=== PATIENT | female | born 1990 | race Caucasian/White ===

== ENCOUNTER 2017-11-07 06:45 | Inpatient (IN) | payer BC, OTHER ==
[2017-11-07] MEDS ORDERED: Ondansetron 4 MG/2 ML SDV IVPUSH PRN ×2 (07:08→07:36)
[2017-11-07] MEDS ORDERED: Nalbuphine 20 MG/ML 1 ML Syringe IVPUSH PRN (07:08)
[2017-11-07] MEDS ORDERED: Sodium Chloride 0.9% 10 ML Syringe FLUSH PRN (07:08)
[2017-11-07] MEDS ORDERED: Oxytocin/Lactated Ringers 10 UNIT/1,000 ML BAG IV SCH (07:15)
--- NOTE | 2017-11-07 07:15 | PCM.LDHP ---
L&D History of Present Illness - General Date of Service: 11/07/17 Admit Problem/Dx: Patient Status Order with Admit Dx/Problem 11/07/17 07:08 Patient Status [ADT] Routine Admission Diagnosis/Problem Admission Diagnosis/Problem Normal labor Source of Information: Patient History Limitations: Reports: No Limitations - History of Present Illness Introduction:: Patient is a 26 y/o at 38 5/7 wks who presents in labor. Contractions started early this AM. Have progressively gotten stronger. No bleeding or LOF. No other concerns. - Related Data Allergies/Adverse Reactions: Allergies Allergy/AdvReac Type Severity Reaction Status Date / Time Penicillins Allergy Hives Verified 06/28/15 13:08 Home Medications: Home Meds Pnv95/Iron Fum/Folic Acid [ Caplet] 06/28/15 [History] Ranitidine HCl [Zantac] 06/28/15 [History] Benzocaine/Menthol [Dermoplast Pain Relief [place]] 1 sprays TOP ASDIRECTED PRN # 0 canister 07/01/15 [Rx] Docusate Sodium [Colace] 100 mg PO BID PRN #0 cap 07/01/15 [Rx] Ibuprofen [IJD: Ibuprofen] 600 mg PO Q4H PRN #0 tablet 07/01/15 [Rx] Witch Valerie [Tucks] 1 pad TOP ASDIRECTED PRN #0 pad 07/01/15 [Rx] Past Medical History - Past Health History Medical/Surgical History: Denies 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 Para: 1 LMP (Approximate): - Infectious Disease History Infectious Disease History: Reports: Chicken Pox Social & Family History - Tobacco Use Smoking Status *Q: Never Smoker - Alcohol Use Alcohol Use History: No - Recreational Drug Use Recreational Drug Use: No Drug Use in Last 12 Months: No H&P Review of Systems - Review of Systems: Review Of Systems: See Below General: Reports: No Symptoms Pulmonary: Reports: No Symptoms Cardiovascular: Reports: No Symptoms Gastrointestinal: Reports: No Symptoms Genitourinary: Reports: No Symptoms Musculoskeletal: Reports: No Symptoms L&D Exam - Exam Exam: See Below - OB Specific Contraction Intensity: Moderate Movement: Active Heart Tones: Present Heart Tones per Min: 135 Heart Rate (FHR) Variability: Moderate (6-25 bmp) Presentation: Vertex - Bobby Score Bobby Score Cervix Position: Midposition Bobby Score Consistency: Soft Bobby Score Effacement: >80% Bobby Score Dilation: > 5 cm Bobby Score 's Station: -1 ,0 Bobby Score Total: 11 - Exam General: Alert, Oriented, Cooperative Lungs: Clear to Auscultation, Normal Respiratory Effort Cardiovascular: Regular Rate, Regular Rhythm GI/Abdominal Exam: Soft, Non-Tender Genitourinary: Normal external exam Extremities: Normal Inspection Skin: Warm, Dry, Intact - Problem List (1) 38 weeks gestation of SNOMED Code(s): 58548447 ICD Code: Z3A.38 - 38 WEEKS GESTATION OF Status: Acute Current Visit: Yes Problem List Initiated/Reviewed/Updated: Yes Orders Last 24hrs: Active Orders 24 hr Category Date Time Status Patient Status [ADT] Routine ADT 11/07/17 07:08 Ordered Activity as Tolerated [RC] PFP Care 11/07/17 07:08 Ordered Communication Order [RC] ASDIRECTED Care 11/07/17 07:08 Ordered Heart Tones [RC] ASDIRECTED Care 11/07/17 07:09 Ordered Non Stress Test [RC] PER UNIT ROUTINE Care 11/07/17 07:08 Ordered Notify Provider [RC] PFP Care 11/07/17 07:08 Ordered Notify Provider [RC] PRN Care 11/07/17 07:08 Ordered Peripheral IV Care [RC] . DIRECTED Care 11/07/17 07:09 Ordered Vital Signs [RC] PER UNIT ROUTINE Care 11/07/17 07:08 Ordered Regular Diet [DIET] Diet 11/07/17 Breakfast Ordered CBC W/O DIFF,HEMOGRAM [HEME] Stat Lab 11/07/17 07:08 Ordered RAPID PLASMA REAGIN,RPR [CHEM] Routine Lab 11/07/17 07:08 Ordered TYPE AND SCREEN [BBK] Stat Lab 11/07/17 07:08 Ordered Lactated Ringers [Ringers, Lactated] 1,000 ml Med 11/07/17 07:15 Ordered IV ASDIRECTED Nalbuphine [Nubain] Med 11/07/17 07:08 Ordered 10 mg IVPUSH Q2H PRN Ondansetron [Zofran] Med 11/07/17 07:08 Ordered 4 mg IVPUSH Q4H PRN Oxytocin/Lactated Ringers [Pitocin in LR 10 Units/1,000 Med 11/07/17 07:15 Ordered ML] 10 unit in 1,000 ml IV .CONTINUOUS Sodium Chloride 0.9% [Saline Flush] Med 11/07/17 07:08 Ordered 10 ml FLUSH ASDIRECTED PRN Electronic Heart Tones Ext w TOCO [WOMSER] Ot 11/07/17 07:08 Ordered Routine Electronic Heart Tones Internal [WOMSER] Per Unit Ot 11/07/17 07:08 Ordered Routine Peripheral IV Insertion Adult [OM.PC] Routine Oth 11/07/17 07:08 Ordered Resuscitation Status Routine Resus Stat 11/07/17 07:08 Ordered Medication Orders Lactated Ringer's (Ringers, Lactated) 1,000 mls @ 100 mls/hr IV ASDIRECTED [facility] Oxytocin/Lactated Ringer's (Pitocin In Lr 10 Units/1,000 Ml) 10 unit in 1,000 mls @ 500 mls/hr IV .CONTINUOUS [facility] Nalbuphine HCl (Nubain) 10 mg IVPUSH Q2H PRN PRN Reason: pain Ondansetron HCl (Zofran) 4 mg IVPUSH Q4H PRN PRN Reason: Nausea/Vomiting Sodium Chloride (Saline Flush) 10 ml FLUSH ASDIRECTED PRN PRN Reason: Keep Vein Open Assessment/Plan Comment:: 26 y/o at 38 5/7 wks presents in labor * Labs on admission * GBS negative, no need for antibiotics * Pain management per patient preference * Anticipate
[2017-11-07] MEDS ORDERED: ePHEDrine 50 MG/ML SDV IVPUSH PRN (07:36)
[2017-11-07] MEDS ORDERED: diphenhydrAMINE 50 MG/ML SDV IVPUSH PRN (07:36)
[2017-11-07] MEDS ORDERED: fentaNYL 100 MCG/2 ML SDV EPIDUR PRN (07:36)
[2017-11-07] MEDS ORDERED: Bupivacaine/fentaNYL/NS 100 ML Bag EPIDUR SCH (07:45)
[2017-11-07] MEDS: Lactated Ringers 1,000 ML IV SCH ×2 (07:57→08:24)
--- NOTE | 2017-11-07 08:33 | PCM.PREANE ---
Preanesthetic Assessment - Anesthesia/Transfusion/Family Hx Anesthesia History: Prior Anesthesia Without Reaction Family History of Anesthesia Reaction: No Transfusion History: No Prior Transfusion(s) - Review of Systems General: No Symptoms Pulmonary: No Symptoms Cardiovascular: No Symptoms Gastrointestinal: No Symptoms Neurological: No Symptoms Other: Reports: None - Physical Assessment Pulse: 88 O2 Sat by Pulse Oximetry: 98 Respiratory Rate: 22 Blood Pressure: 118/77 Temperature: 98.2 C - Lab Values: Laboratory Last Values WBC 12.99 K/mm3 (3.98-10.04) H 11/07/17 07:20 RBC 4.13 M/mm3 (3.98-5.22) 11/07/17 07:20 Hgb 12.2 gm/L (11.2-15.7) 11/07/17 07:20 Hct 36.2 % (34.1-44.9) 11/07/17 07:20 MCV 87.7 fl (79.4-94.8) 11/07/17 07:20 MCH 29.5 pg (25.6-32.2) 11/07/17 07:20 MCHC 33.7 g/dl (32.2-35.5) 11/07/17 07:20 RDW Std Deviation 40.2 fL (36.4-46.3) 11/07/17 07:20 Plt Count 216 K/mm3 (182-369) 11/07/17 07:20 MPV 9.9 fl (9.4-12.3) 11/07/17 07:20 Blood Type O POSITIVE 11/07/17 07:20 Gel Antibody Screen Negative 11/07/17 07:20 - Allergies Allergies/Adverse Reactions: Allergies Allergy/AdvReac Type Severity Reaction Status Date / Time Penicillins Allergy Hives Verified 06/28/15 13:08 PreAnesthesia Questionnaire - Past Health History Medical/Surgical History: Denies 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: - Infectious Disease History Infectious Disease History: Reports: Chicken Pox - SUBSTANCE USE Smoking Status *Q: Never Smoker Recreational Drug Use History: No - HOME MEDS Home Medications: Home Meds Pnv95/Iron Fum/Folic Acid [ Caplet] 06/28/15 [History] Ranitidine HCl [Zantac] 06/28/15 [History] Benzocaine/Menthol [Dermoplast Pain Relief [place]] 1 sprays TOP ASDIRECTED PRN # 0 canister 07/01/15 [Rx] Docusate Sodium [Colace] 100 mg PO BID PRN #0 cap 07/01/15 [Rx] Ibuprofen [IJD: Ibuprofen] 600 mg PO Q4H PRN #0 tablet 07/01/15 [Rx] Elan Blandonel [Tucks] 1 pad TOP ASDIRECTED PRN #0 pad 07/01/15 [Rx] - CURRENT (IN HOUSE) MEDS Current Meds: Current Medications Diphenhydramine HCl (Benadryl) 25 mg IVPUSH Q6H PRN PRN Reason: Pruritis Ephedrine Sulfate (Ephedrine Sulfate) 5 mg IVPUSH ASDIRECTED PRN PRN Reason: Hypotension Fentanyl (Sublimaze) 100 mcg EPIDUR ONETIME PRN PRN Reason: Pain Last Admin: 11/07/17 08:14 Dose: 100 mcg Fentanyl/Bupivacaine HCl (Fentanyl/Bupivacaine/Ns 2 Mcg-0.125% 100 Ml) 100 ml EPIDUR ASDIRECTED [facility] Last Admin: 11/07/17 08:15 Dose: 100 ml Lactated Ringer's (Ringers, Lactated) 1,000 mls @ 100 mls/hr IV ASDIRECTED [facility] Last Admin: 11/07/17 08:24 Dose: 250 mls/hr Oxytocin/Lactated Ringer's (Pitocin In Lr 10 Units/1,000 Ml) 10 unit in 1,000 mls @ 500 mls/hr IV .CONTINUOUS [facility] Nalbuphine HCl (Nubain) 10 mg IVPUSH Q2H PRN PRN Reason: pain Ondansetron HCl (Zofran) 4 mg IVPUSH Q4H PRN PRN Reason: Nausea/Vomiting Ondansetron HCl (Zofran) 4 mg IVPUSH ONETIME PRN PRN Reason: Nausea/Vomiting Sodium Chloride (Saline Flush) 10 ml FLUSH ASDIRECTED PRN PRN Reason: Keep Vein Open
--- NOTE | 2017-11-07 12:25 | PCM.DEL ---
L & D Note - General Info Date of Service: 11/07/17 - Delivery Note Labor: Spontaneous Delivery Outcome: Livebirth Delivery Method: Spontaneous Vaginal Delivery-Single Delivery Mode: Spontaneous Presentation: Left Occiput Anterior (SYED) Nuchal Cord: None Anesthesia Type: Epidural Amniotic Fluid Description: Clear Episiotomy Type: None Laceration: None Placenta: Intact, Spontaneous Cord: 3 Vessels Estimated Blood Loss: 250 Resuscitation Needed: Yes [place]: Bulb Syringe, Stimulated, Warmed, [place] Used Delivery Comments (Free Text/Narrative):: Patient found to be complete and began pushing. With maternal pushing effort head delivered from an SYED presentation. No nuchal cord present. With gentle downward traction shoulders and body delivered. Infant placed on maternal abdomen. Cord clamped and cut. Cord blood obtained. Placenta allowed time to separate and expelled intact. Inspection of the perineum showed no lacerations - General Info Date of Service: 11/07/17 - Patient Data Vitals - Most Recent: Last Vital Signs Temp 98.2 C H 11/07/17 08:33 Pulse 88 11/07/17 08:33 Resp 22 H 11/07/17 08:33 BP 118/77 11/07/17 08:33 Pulse Ox 98 11/07/17 08:33 Weight - Most Recent: 89.811 kg Lab Results Last 24 Hours: Laboratory Results - last 24 hr 11/07/17 11/07/17 Range/Units 07:20 07:20 WBC 12.99 H (3.98-10.04) K/mm3 RBC 4.13 (3.98-5.22) M/mm3 Hgb 12.2 (11.2-15.7) gm/L Hct 36.2 (34.1-44.9) % MCV 87.7 (79.4-94.8) fl MCH 29.5 (25.6-32.2) pg MCHC 33.7 (32.2-35.5) g/dl RDW Std Deviation 40.2 (36.4-46.3) fL Plt Count 216 (182-369) K/mm3 MPV 9.9 (9.4-12.3) fl Blood Type O POSITIVE Gel Antibody Screen Negative Med Orders - Current: Current Medications Diphenhydramine HCl (Benadryl) 25 mg IVPUSH Q6H PRN PRN Reason: Pruritis Ephedrine Sulfate (Ephedrine Sulfate) 5 mg IVPUSH ASDIRECTED PRN PRN Reason: Hypotension Fentanyl (Sublimaze) 100 mcg EPIDUR ONETIME PRN PRN Reason: Pain Last Admin: 11/07/17 08:14 Dose: 100 mcg Fentanyl/Bupivacaine HCl (Fentanyl/Bupivacaine/Ns 2 Mcg-0.125% 100 Ml) 100 ml EPIDUR ASDIRECTED [facility] Last Admin: 11/07/17 08:15 Dose: 100 ml Lactated Ringer's (Ringers, Lactated) 1,000 mls @ 100 mls/hr IV ASDIRECTED [facility] Last Admin: 11/07/17 08:24 Dose: 250 mls/hr Oxytocin/Lactated Ringer's (Pitocin In Lr 10 Units/1,000 Ml) 10 unit in 1,000 mls @ 500 mls/hr IV .CONTINUOUS [facility] Nalbuphine HCl (Nubain) 10 mg IVPUSH Q2H PRN PRN Reason: pain Ondansetron HCl (Zofran) 4 mg IVPUSH Q4H PRN PRN Reason: Nausea/Vomiting Ondansetron HCl (Zofran) 4 mg IVPUSH ONETIME PRN PRN Reason: Nausea/Vomiting Sodium Chloride (Saline Flush) 10 ml FLUSH ASDIRECTED PRN PRN Reason: Keep Vein Open - Problem List & Annotations (1) 38 weeks gestation of SNOMED Code(s): 06482922 Code(s): Z3A.38 - 38 WEEKS GESTATION OF Status: Acute Current Visit: Yes (2) Vaginal delivery SNOMED Code(s): 079127704 Code(s): O80 - ENCOUNTER FOR FULL-TERM UNCOMPLICATED DELIVERY Status: Acute Current Visit: No - Problem List Review Problem List Initiated/Reviewed/Updated: Yes - My Orders Last 24 Hours: My Active Orders 11/07/17 07:08 Patient Status [ADT] Routine Activity as Tolerated [RC] PFP Communication Order [RC] ASDIRECTED Non Stress Test [RC] PER UNIT ROUTINE Notify Provider [RC] PFP Notify Provider [RC] PRN Vital Signs [RC] PER UNIT ROUTINE Nalbuphine [Nubain] 10 mg IVPUSH Q2H PRN Ondansetron [Zofran] 4 mg IVPUSH Q4H PRN Sodium Chloride 0.9% [Saline Flush] 10 ml FLUSH ASDIRECTED PRN Electronic Heart Tones Ext w TOCO [WOMSER] Routine Electronic Heart Tones Internal [WOMSER] Per Unit Routine Peripheral IV Insertion Adult [OM.PC] Routine Resuscitation Status Routine 11/07/17 07:09 Heart Tones [RC] ASDIRECTED Peripheral IV Care [RC] . DIRECTED 11/07/17 07:15 Lactated Ringers [Ringers, Lactated] 1,000 ml IV ASDIRECTED Oxytocin/Lactated Ringers [Pitocin in LR 10 Units/1,000 ML] 10 unit in 1,000 ml IV .CONTINUOUS 11/07/17 07:20 PATIENT RETYPE [BBK] Stat RAPID PLASMA REAGIN,RPR [CHEM] Routine TYPE AND SCREEN [BBK] Stat 11/07/17 12:20 Patient Status Manage Transfer [TRANSFER] Routine 11/07/17 Breakfast Regular Diet [DIET] - Assessment Assessment:: 26 y/o G2 now P2002 PPD#0 from at 38 5/7 wks - Plan Plan:: * Routine cares * Encourage breast feeding * Discharge home in 1-2 days
[2017-11-07] MEDS ORDERED: Benzocaine/Menthol 20%-0.5% Spray 56 GM Canister TOP PRN (13:20)
[2017-11-07] MEDS ORDERED: Witch Hazel Medicated Pads 100/Jar TOP PRN (13:20)
[2017-11-07] MEDS ORDERED: Docusate Sodium 100 MG Cap PO PRN (13:20)
[2017-11-07] MEDS ORDERED: Lanolin 100% Cream 7 GM Tube TOP PRN (13:20)
[2017-11-07] MEDS ORDERED: Acetaminophen 325 MG Tab PO PRN (13:20)
[2017-11-07] MEDS: Ibuprofen 600 MG Tab PO PRN (16:12)
[2017-11-07] MEDS ORDERED: Bupivacaine 0.25% 10 ML SDV ONE (22:00)
--- NOTE | 2017-11-08 07:01 | PCM.PNPP ---
- General Info Date of Service: 11/08/17 Functional Status: Reports: Pain Controlled, Tolerating Diet, Ambulating, Urinating - Review of Systems General: Reports: No Symptoms Pulmonary: Reports: No Symptoms Cardiovascular: Reports: No Symptoms Gastrointestinal: Reports: No Symptoms Genitourinary: Reports: No Symptoms Musculoskeletal: Reports: No Symptoms - Patient Data Vital Signs - Most Recent: Last Vital Signs Temp 98.2 C H 11/07/17 08:33 Pulse 74 11/07/17 19:55 Resp 16 11/07/17 19:55 BP 135/80 11/07/17 19:55 Pulse Ox 99 11/07/17 19:55 Weight - Most Recent: 89.811 kg I&O - Last 24 Hours: Intake & Output 11/07/17 11/08/17 11/08/17 22:59 06:59 14:59 Intake Total 120 Balance 120 Lab Results - Last 24 Hours: Laboratory Results - last 24 hr 11/07/17 11/07/17 11/07/17 Range/Units 07:20 07:20 07:20 WBC 12.99 H (3.98-10.04) K/mm3 RBC 4.13 (3.98-5.22) M/mm3 Hgb 12.2 (11.2-15.7) gm/L Hct 36.2 (34.1-44.9) % MCV 87.7 (79.4-94.8) fl MCH 29.5 (25.6-32.2) pg MCHC 33.7 (32.2-35.5) g/dl RDW Std Deviation 40.2 (36.4-46.3) fL Plt Count 216 (182-369) K/mm3 MPV 9.9 (9.4-12.3) fl RPR Non-reactive (NONREACTIVE) Blood Type O POSITIVE Gel Antibody Screen Negative Med Orders - Current: Current Medications Acetaminophen (Tylenol) 650 mg PO Q4H PRN PRN Reason: mild pain or fever Benzocaine/Menthol (Dermoplast Pain Relief [place]) 0 gm TOP ASDIRECTED PRN PRN Reason: Perineal Comfort Measure Docusate Sodium (Colace) 100 mg PO BID PRN PRN Reason: Constipation Emollient Ointment (Lansinoh Hpa) 0 gm TOP ASDIRECTED PRN PRN Reason: Sore Nipples Ibuprofen (Motrin) 600 mg PO Q6H PRN PRN Reason: Mild pain or fever Last Admin: 11/07/17 16:12 Dose: 600 mg Witch Valerie (Tucks) 1 pad TOP ASDIRECTED PRN PRN Reason: Hemorrhoid pain Discontinued Medications Diphenhydramine HCl (Benadryl) 25 mg IVPUSH Q6H PRN PRN Reason: Pruritis Ephedrine Sulfate (Ephedrine Sulfate) 5 mg IVPUSH ASDIRECTED PRN PRN Reason: Hypotension Fentanyl (Sublimaze) 100 mcg EPIDUR ONETIME PRN PRN Reason: Pain Last Admin: 11/07/17 08:14 Dose: 100 mcg Fentanyl/Bupivacaine HCl (Fentanyl/Bupivacaine/Ns 2 Mcg-0.125% 100 Ml) 100 ml EPIDUR ASDIRECTED [facility] Last Admin: 11/07/17 08:15 Dose: 100 ml Lactated Ringer's (Ringers, Lactated) 1,000 mls @ 100 mls/hr IV ASDIRECTED [facility] Last Admin: 11/07/17 08:24 Dose: 250 mls/hr Oxytocin/Lactated Ringer's (Pitocin In Lr 10 Units/1,000 Ml) 10 unit in 1,000 mls @ 500 mls/hr IV .CONTINUOUS [facility] Last Admin: 11/07/17 11:10 Dose: 500 mls/hr Nalbuphine HCl (Nubain) 10 mg IVPUSH Q2H PRN PRN Reason: pain Ondansetron HCl (Zofran) 4 mg IVPUSH Q4H PRN PRN Reason: Nausea/Vomiting Ondansetron HCl (Zofran) 4 mg IVPUSH ONETIME PRN PRN Reason: Nausea/Vomiting Sodium Chloride (Saline Flush) 10 ml FLUSH ASDIRECTED PRN PRN Reason: Keep Vein Open - Infant Interaction Disposition, : in Room with Family Interaction: Holding Infant Feeding: Breastfed Infant; Nursed Well Support Person: - Recovery Exam Fundal Tone: Firm Fundal Level: 1 Fingerbreadths Below Umbilicus Fundal Placement: Midline Lochia Amount: Small Lochia Color: Rubra/Red Perineum Description: Intact, Minimal Bruising/Swelling Episiotomy/Laceration: None Bladder Status: Voiding Urinary Elimination: Voided - Exam General: Alert, Oriented, Cooperative GI/Abdominal Exam: Soft, Non-Tender Extremities: Normal Inspection Skin: Warm, Dry, Intact - Problem List & Annotations (1) 38 weeks gestation of SNOMED Code(s): 85739175 Code(s): Z3A.38 - 38 WEEKS GESTATION OF Status: Acute Current Visit: Yes (2) Vaginal delivery SNOMED Code(s): 698716880 Code(s): O80 - ENCOUNTER FOR FULL-TERM UNCOMPLICATED DELIVERY Status: Acute Current Visit: No - Problem List Review Problem List Initiated/Reviewed/Updated: Yes - My Orders Last 24 Hours: My Active Orders 11/07/17 07:08 Resuscitation Status Routine 11/07/17 07:09 Heart Tones [RC] ASDIRECTED Peripheral IV Care [RC] . DIRECTED 11/07/17 13:20 Activity as Tolerated [RC] PER UNIT ROUTINE Vital Signs [RC] 03,09,15,21 Acetaminophen [Tylenol] 650 mg PO Q4H PRN Benzocaine/Menthol [Dermoplast Pain Relief [place]] See Dose Instructions TOP ASDIRECTED PRN Docusate Sodium [Colace] 100 mg PO BID PRN Ibuprofen [Motrin] 600 mg PO Q6H PRN Lanolin [Lansinoh HPA] See Dose Instructions TOP ASDIRECTED PRN Witch Valerie [Tucks] 1 pad TOP ASDIRECTED PRN Assess Lochia [WOMSER] Per Unit Routine Assess Uterine Involution [WOMSER] Per Unit Routine Breast Pump [WOMSER] Per Unit Routine Heat Therapy [OM.PC] PRN Ice Therapy [OM.PC] Per Unit Routine Perineal Care [OM.PC] Per Unit Routine Peripheral IV Discontinue [OM.PC] Routine Sitz Bath [OM.PC] Per Unit Routine 11/07/17 Lunch Regular Diet [DIET] 11/08/17 13:20 Heat Therapy [OM.PC] PRN - Assessment Assessment:: 26 y/o G2 now P2002 PPD#1 from at 38 5/7 wks - Plan Plan:: * Routine cares * Encourage breast feeding * Discharge home today
--- NOTE | 2017-11-08 07:10 | PCM.DCSUM1 ---
Discharge Summary - Discharge Data Discharge Date: 11/08/17 Discharge Disposition: Home, Self-Care 01 Condition: Good - Discharge Diagnosis/Problem(s) (1) 38 weeks gestation of SNOMED Code(s): 57871720 ICD Code: Z3A.38 - 38 WEEKS GESTATION OF Status: Acute Current Visit: Yes (2) Vaginal delivery SNOMED Code(s): 430788928 ICD Code: O80 - ENCOUNTER FOR FULL-TERM UNCOMPLICATED DELIVERY Status: Acute Current Visit: No - Patient Summary/Data Complications: None Consults: None Recommended Follow-up Testing/Procedures: Follow up in 3-6 weeks for check Hospital Course: 26 y/o at 38 5/7 wks presented in labor. She progressed well without need for augmentation. She underwent an uncomplicated . See delivery note. she did well and was discharged home on PPD#1 - Patient Instructions Diet: Regular Diet as Tolerated Activity: As Tolerated Activity, Other: Pelvic Rest for 6 weeks Driving: May Drive Today Showering/Bathing: May Shower Showering/Bathing, Other: May Bathe Notify Provider of: Fever, Increased Pain, Swelling and Redness, Drainage, Nausea and/or Vomiting - Discharge Plan *PRESCRIPTION DRUG MONITORING PROGRAM REVIEWED*: Not Applicable *COPY OF PRESCRIPTION DRUG MONITORING REPORT IN PATIENT [place]: Not Applicable Home Medications: Home Meds Pnv95/Iron Fum/Folic Acid [ [place]] 1 tab PO DAILY 06/28/15 [History] Docusate Sodium [Colace] 100 mg PO BID PRN cap 11/08/17 [Rx] Ibuprofen [Motrin] 600 mg PO Q6H PRN tablet 11/08/17 [Rx] Referrals: Nahed Cao MD [Primary Care Provider] - (3-6 weeks for check ) - Discharge Summary/Plan Comment DC Time >30 min.: No - Patient Data Vitals - Most Recent: Last Vital Signs Temp 36.6 C 11/08/17 04:14 Pulse 68 11/08/17 04:14 Resp 16 11/08/17 04:14 BP 119/75 11/08/17 04:14 Pulse Ox 98 11/08/17 04:14 Weight - Most Recent: 89.811 kg I&O - Last 24 hours: Intake & Output 11/07/17 11/08/17 11/08/17 22:59 06:59 14:59 Intake Total 120 Balance 120 Lab Results - Last 24 hrs: Laboratory Results - last 24 hr 11/07/17 11/07/17 11/07/17 Range/Units 07:20 07:20 07:20 WBC 12.99 H (3.98-10.04) K/mm3 RBC 4.13 (3.98-5.22) M/mm3 Hgb 12.2 (11.2-15.7) gm/L Hct 36.2 (34.1-44.9) % MCV 87.7 (79.4-94.8) fl MCH 29.5 (25.6-32.2) pg MCHC 33.7 (32.2-35.5) g/dl RDW Std Deviation 40.2 (36.4-46.3) fL Plt Count 216 (182-369) K/mm3 MPV 9.9 (9.4-12.3) fl RPR Non-reactive (NONREACTIVE) Blood Type O POSITIVE Gel Antibody Screen Negative Med Orders - Current: Current Medications Acetaminophen (Tylenol) 650 mg PO Q4H PRN PRN Reason: mild pain or fever Benzocaine/Menthol (Dermoplast Pain Relief [place]) 0 gm TOP ASDIRECTED PRN PRN Reason: Perineal Comfort Measure Docusate Sodium (Colace) 100 mg PO BID PRN PRN Reason: Constipation Emollient Ointment (Lansinoh Hpa) 0 gm TOP ASDIRECTED PRN PRN Reason: Sore Nipples Ibuprofen (Motrin) 600 mg PO Q6H PRN PRN Reason: Mild pain or fever Last Admin: 11/07/17 16:12 Dose: 600 mg Witch Valerie (Tucks) 1 pad TOP ASDIRECTED PRN PRN Reason: Hemorrhoid pain Discontinued Medications Diphenhydramine HCl (Benadryl) 25 mg IVPUSH Q6H PRN PRN Reason: Pruritis Ephedrine Sulfate (Ephedrine Sulfate) 5 mg IVPUSH ASDIRECTED PRN PRN Reason: Hypotension Fentanyl (Sublimaze) 100 mcg EPIDUR ONETIME PRN PRN Reason: Pain Last Admin: 11/07/17 08:14 Dose: 100 mcg Fentanyl/Bupivacaine HCl (Fentanyl/Bupivacaine/Ns 2 Mcg-0.125% 100 Ml) 100 ml EPIDUR ASDIRECTED [facility] Last Admin: 11/07/17 08:15 Dose: 100 ml Lactated Ringer's (Ringers, Lactated) 1,000 mls @ 100 mls/hr IV ASDIRECTED [facility] Last Admin: 11/07/17 08:24 Dose: 250 mls/hr Oxytocin/Lactated Ringer's (Pitocin In Lr 10 Units/1,000 Ml) 10 unit in 1,000 mls @ 500 mls/hr IV .CONTINUOUS [facility] Last Admin: 11/07/17 11:10 Dose: 500 mls/hr Nalbuphine HCl (Nubain) 10 mg IVPUSH Q2H PRN PRN Reason: pain Ondansetron HCl (Zofran) 4 mg IVPUSH Q4H PRN PRN Reason: Nausea/Vomiting Ondansetron HCl (Zofran) 4 mg IVPUSH ONETIME PRN PRN Reason: Nausea/Vomiting Sodium Chloride (Saline Flush) 10 ml FLUSH ASDIRECTED PRN PRN Reason: Keep Vein Open
--- NOTE | 2017-11-08 07:55 | PCM48HPAN ---
Post Anesthesia Note - EVALUATION WITHIN 48HRS OF ANESTHETIC Vital Signs in Normal Range: Yes Patient Participated in Evaluation: Yes Respiratory Function Stable: Yes Airway Patent: Yes Cardiovascular Function Stable: Yes Hydration Status Stable: Yes Pain Control Satisfactory: Yes Nausea and Vomiting Control Satisfactory: Yes Mental Status Recovered: Yes
[2017-11-08 09:45] VITALS: BP 130/70
[2017-11-08] MEDS: Ibuprofen 600 MG Tab PO PRN (09:46)
== END 2017-11-08 14:10 | disposition home or self-care (01) | DRG 560 ==
LOC: JD.OBCHECK 06:45 → JD.OB 06:45 → JD.OBCHECK 07:07 → JD.OB 07:08 → OBSVTOIN 11:06 → JD.OB 11:07
PROVIDERS: ADMIT Obstetrics & Gynecology; ATTEND Obstetrics & Gynecology
PROC: 10E0XZZ Delivery of Products of Conception, External Approach (ICD-10-PCS; principal; 2017-11-07)
PROC: 6A550ZT Pheresis of Cord Blood Stem Cells, Single (ICD-10-PCS; 2017-11-07)
PROC: 00HU33Z Insertion of Infusion Device into Spinal Canal, Percutaneous Approach (ICD-10-PCS; 2017-11-07)
PROC: 3E0R3BZ Introduction of Anesthetic Agent into Spinal Canal, Percutaneous Approach (ICD-10-PCS; 2017-11-07)
DX: O80 Encounter for full-term uncomplicated delivery (principal); Z3A.38 38 weeks gestation of pregnancy; Z37.0 Single live birth; Z88.0 Allergy status to penicillin
CPT/HCPCS: 01967; 36415; 51701; 59025; 59409; 85027; 86592; 86850; 86900; 86901; A9270-GY; J2590; J3010; J3490; J7120

== ENCOUNTER 2020-08-17 02:21 | Inpatient (IN) | payer BC, OTHER ==
[2020-08-17] MEDS ORDERED: Sodium Chloride 0.9% 10 ML Syringe FLUSH PRN (02:39)
[2020-08-17] MEDS ORDERED: Lidocaine 1% 50 ML MDV INJECT ONE (02:39)
[2020-08-17] MEDS ORDERED: Calcium Carbonate 500 MG Tab.Chew PO PRN (02:39)
[2020-08-17] MEDS ORDERED: Nalbuphine 10 MG/1 ML Vial IVPUSH PRN (02:39)
[2020-08-17] MEDS ORDERED: Oxytocin/Lactated Ringers 10 UNIT/1,000 ML BAG IV SCH (02:45)
[2020-08-17] MEDS: Lactated Ringers 1,000 ML IV SCH ×2 (03:00→03:56)
[2020-08-17] MEDS ORDERED: fentaNYL 100 MCG/2 ML SDV EPIDUR PRN (03:03)
[2020-08-17] MEDS ORDERED: ePHEDrine 50 MG/ML SDV IVPUSH PRN (03:03)
[2020-08-17] MEDS ORDERED: Bupivacaine/fentaNYL/NS 100 ML Bag EPIDUR PRN (03:03)
[2020-08-17] MEDS ORDERED: diphenhydrAMINE 50 MG/ML SDV IVPUSH PRN (03:03)
[2020-08-17] MEDS ORDERED: Ondansetron 4 MG/2 ML SDV IVPUSH PRN (03:06)
[2020-08-17] MEDS ORDERED: Ondansetron 4 MG/2 ML SDV ONE (03:06)
--- NOTE | 2020-08-17 03:29 | PCM.LDHP ---
L&D History of Present Illness - General Date of Service: 08/17/20 Admit Problem/Dx: Patient Status Order with Admit Dx/Problem 08/17/20 02:40 Patient Status [ADT] Routine Admission Diagnosis/Problem Admission Diagnosis/Problem Active labor Source of Information: Patient History Limitations: Reports: No Limitations - History of Present Illness Introduction:: Patient is a 29 y/o at 40 4/7 wks who presents in labor. 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 LMP (Approximate): - Infectious Disease History Infectious Disease History: Reports: Chicken Pox Social & Family History - Tobacco Use Tobacco Use Status *Q: Never Tobacco User - Caffeine Use Caffeine Use: Reports: Coffee, Soda - Alcohol Use Alcohol Use History: No - Recreational Drug Use Recreational Drug Use: No H&P Review of Systems - Review of Systems: Review Of Systems: See Below General: Reports: No Symptoms Pulmonary: Reports: No Symptoms Cardiovascular: Reports: No Symptoms Gastrointestinal: Reports: Abdominal Pain Genitourinary: Reports: No Symptoms Musculoskeletal: Reports: No Symptoms Psychiatric: Reports: No Symptoms Neurological: Reports: No Symptoms L&D Exam - Exam Exam: See Below - OB Specific Contraction Intensity: Moderate to Strong Movement: Active Heart Tones: Present Heart Tones per Min: 130 Heart Rate (FHR) Variability: Moderate (6-25 bmp) Presentation: Vertex - Bobby Score Bobby Score Dilation: > 5 cm (per RN exam) - Exam General: Alert, Oriented, Cooperative Lungs: Clear to Auscultation, Normal Respiratory Effort Cardiovascular: Regular Rate, Regular Rhythm GI/Abdominal Exam: Soft, Non-Tender Genitourinary: Normal external exam Extremities: Normal Inspection Skin: Warm, Dry, Intact - Patient Data Lab Results Last 24 hrs: Laboratory Results - last 24 hr 08/17/20 Range/Units 02:57 WBC 14.90 H (3.98-10.04) K/mm3 RBC 3.98 (3.98-5.22) M/mm3 Hgb 11.8 (11.2-15.7) gm/dl Hct 35.2 (34.1-44.9) % MCV 88.4 (79.4-94.8) fl MCH 29.6 (25.6-32.2) pg MCHC 33.5 (32.2-35.5) g/dl RDW Std Deviation 42.2 (36.4-46.3) fL Plt Count 189 (182-369) K/mm3 MPV 9.7 (9.4-12.3) fl Neut % (Auto) 80.5 H (34.0-71.1) % Lymph % (Auto) 12.3 L (19.3-51.7) % [place] % (Auto) 5.8 (4.7-12.5) % Eos % (Auto) 0.8 (0.7-5.8) Baso % (Auto) 0.1 (0.1-1.2) % Neut # (Auto) 12.00 H (1.56-6.13) K/mm3 Lymph # (Auto) 1.83 (1.18-3.74) K/mm3 [place] # (Auto) 0.87 H (0.24-0.36) K/mm3 Eos # (Auto) 0.12 (0.04-0.36) K/mm3 Baso # (Auto) 0.01 (0.01-0.08) K/mm3 Result Diagrams: 08/17/20 02:57 - Problem List (1) 40 weeks gestation of SNOMED Code(s): 91666679 ICD Code: Z3A.40 - 40 WEEKS GESTATION OF Status: Acute Current Visit: Yes Problem List Initiated/Reviewed/Updated: Yes Orders Last 24hrs: Active Orders 24 hr Category Date Time Status Patient Status [ADT] Routine ADT 08/17/20 02:40 Active Activity as Tolerated [RC] PFP Care 08/17/20 02:40 Active Communication Order [RC] ASDIRECTED Care 08/17/20 02:40 Active Heart Tones [RC] ASDIRECTED Care 08/17/20 02:40 Active Non Stress Test [RC] PER UNIT ROUTINE Care 08/17/20 02:40 Active Notify Provider [RC] ASDIRECTED Care 08/17/20 03:04 Active Notify Provider [RC] PFP Care 08/17/20 02:40 Active Notify Provider [RC] PRN Care 08/17/20 02:40 Active Peripheral IV Care [RC] . DIRECTED Care 08/17/20 02:40 Active Pump Management, Intrathecal [RC] ASDIRECTED Care 08/17/20 02:40 Active Urinary Catheter Assessment [RC] ASDIRECTED Care 08/17/20 02:39 Active Vital Signs [RC] PER UNIT ROUTINE Care 08/17/20 02:40 Active Regular Diet [DIET] Diet 08/17/20 Breakfast Active CORONAVIRUS COVID-19 OTILIO [MOLEC] Stat Lab 08/17/20 02:44 Received HEP C VIRUS AB [REF] Stat Lab 08/17/20 02:57 Received RAPID PLASMA REAGIN,RPR [CHEM] Routine Lab 08/17/20 02:57 Received TYPE AND SCREEN [BBK] Stat Lab 08/17/20 02:57 Received Bupivacaine/fentaNYL/NS [fentaNYL/Bupivacaine/NS 2 MCG- Med 08/17/20 03:03 Active 0.125% 100 ML] 100 ml EPIDUR ASDIRECTED PRN Calcium Carbonate [Tums] Med 08/17/20 02:39 Active 1,000 mg PO Q2H PRN Lactated Ringers [Ringers, Lactated] 1,000 ml Med 08/17/20 02:45 Active IV ASDIRECTED Nalbuphine [Nubain] Med 08/17/20 02:39 Active 10 mg IVPUSH Q2H PRN Ondansetron [Zofran] Med 08/17/20 03:06 Active 4 mg IVPUSH Q4HR PRN Oxytocin/Lactated Ringers [Pitocin in LR 10 Units/1,000 Med 08/17/20 02:45 Active ML] 10 unit in 1,000 ml IV .CONTINUOUS Sodium Chloride 0.9% [Saline Flush] Med 08/17/20 02:39 Active 10 ml FLUSH ASDIRECTED PRN diphenhydrAMINE [Benadryl] Med 08/17/20 03:03 Active 25 mg IVPUSH Q6H PRN ePHEDrine [ePHEDrine sulfate] Med 08/17/20 03:03 Active 5 mg IVPUSH ASDIRECTED PRN fentaNYL [Sublimaze] Med 08/17/20 03:03 Active 100 mcg EPIDUR Q3H PRN Electronic Heart Tones Ext w TOCO [WOMSER] Oth 08/17/20 02:40 Ordered Routine Electronic Heart Tones Internal [WOMSER] Per Unit Oth 08/17/20 02:40 Ordered Routine Peripheral IV Insertion Adult [OM.PC] Routine Oth 08/17/20 02:40 Ordered Resuscitation Status Routine Resus Stat 08/17/20 02:39 Ordered Medication Orders Calcium Carbonate/Glycine (Calcium Carbonate 500 Mg Tab.Chew) 1,000 mg PO Q2H PRN PRN Reason: Indigestion Diphenhydramine HCl (Diphenhydramine 50 Mg/Ml Sdv) 25 mg IVPUSH Q6H PRN PRN Reason: pruritis Ephedrine Sulfate (Ephedrine 50 Mg/Ml Sdv) 5 mg IVPUSH ASDIRECTED PRN PRN Reason: Hypotension Fentanyl (Fentanyl 100 Mcg/2 Ml Sdv) 100 mcg EPIDUR Q3H PRN PRN Reason: Pain Last Admin: 08/17/20 03:13 Dose: 100 mcg Documented by: MAGALY Fentanyl/Bupivacaine HCl (Bupivacaine/Fentanyl/Ns 100 Ml Bag) 100 ml EPIDUR ASDIRECTED PRN PRN Reason: Pain Last Admin: 08/17/20 03:13 Dose: 100 ml Documented by: MAGALY Oxytocin/Lactated Ringer's (Pitocin In Lr 10 Units/1,000 Ml) 10 unit in 1,000 mls @ 500 mls/hr IV .CONTINUOUS ILIANA Lactated Ringer's (Ringers, Lactated) 1,000 mls @ 100 mls/hr IV ASDIRECTED ILIANA Last Admin: 08/17/20 03:00 Dose: 999 mls/hr Documented by: MAGALY Nalbuphine HCl (Nalbuphine 10 Mg/1 Ml Vial) 10 mg IVPUSH Q2H PRN PRN Reason: Pain Ondansetron HCl (Ondansetron 4 Mg/2 Ml Sdv) 4 mg IVPUSH Q4HR PRN PRN Reason: Nausea Sodium Chloride (Sodium Chloride 0.9% 10 Ml Syringe) 10 ml FLUSH ASDIRECTED PRN PRN Reason: Keep Vein Open Assessment/Plan Comment:: * Labs to be done * GBS negative, no need for antibiotics * Pain management per patient preference * Anticipate
--- NOTE | 2020-08-17 03:52 | PCM.PREANE ---
Preanesthetic Assessment - Procedure Proposed Procedure: Labor Epidural - Anesthesia/Transfusion/Family Hx Anesthesia History: Prior Anesthesia Without Reaction Family History of Anesthesia Reaction: No Transfusion History: No Prior Transfusion(s) - Review of Systems General: No Symptoms Pulmonary: No Symptoms Cardiovascular: No Symptoms Gastrointestinal: Abdominal Pain (Contractions), Other (GERD) Neurological: No Symptoms Other: Reports: None - Physical Assessment Vital Signs: 117/86 88 18 98% Weight: 98.43 kg ASA Class: 2 Mental Status: Alert & Oriented x3 Airway Class: Mallampati = 2 Dentition: Reports: Normal Dentition Thyro-Mental Finger Breadths: 3 Mouth Opening Finger Breadths: 3 ROM/Head Extension: Full Lungs: Clear to Auscultation, Normal Respiratory Effort Cardiovascular: Regular Rate, Regular Rhythm - Lab Values: Laboratory Last Values WBC 14.90 K/mm3 (3.98-10.04) H 08/17/20 02:57 RBC 3.98 M/mm3 (3.98-5.22) 08/17/20 02:57 Hgb 11.8 gm/dl (11.2-15.7) 08/17/20 02:57 Hct 35.2 % (34.1-44.9) 08/17/20 02:57 MCV 88.4 fl (79.4-94.8) 08/17/20 02:57 MCH 29.6 pg (25.6-32.2) 08/17/20 02:57 MCHC 33.5 g/dl (32.2-35.5) 08/17/20 02:57 RDW Std Deviation 42.2 fL (36.4-46.3) 08/17/20 02:57 Plt Count 189 K/mm3 (182-369) 08/17/20 02:57 MPV 9.7 fl (9.4-12.3) 08/17/20 02:57 Neut % (Auto) 80.5 % (34.0-71.1) H 08/17/20 02:57 Lymph % (Auto) 12.3 % (19.3-51.7) L 08/17/20 02:57 [place] % (Auto) 5.8 % (4.7-12.5) 08/17/20 02:57 Eos % (Auto) 0.8 (0.7-5.8) 08/17/20 02:57 Baso % (Auto) 0.1 % (0.1-1.2) 08/17/20 02:57 Neut # (Auto) 12.00 K/mm3 (1.56-6.13) H 08/17/20 02:57 Lymph # (Auto) 1.83 K/mm3 (1.18-3.74) 08/17/20 02:57 [place] # (Auto) 0.87 K/mm3 (0.24-0.36) H 08/17/20 02:57 Eos # (Auto) 0.12 K/mm3 (0.04-0.36) 08/17/20 02:57 Baso # (Auto) 0.01 K/mm3 (0.01-0.08) 08/17/20 02:57 - Allergies Allergies/Adverse Reactions: Allergies Allergy/AdvReac Type Severity Reaction Status Date / Time Penicillins Allergy Hives Verified 08/01/20 11:05 - Acknowledgements Anesthesia Type Planned: Epidural Pt an Appropriate Candidate for the Planned Anesthesia: Yes Alternatives and Risks of Anesthesia Discussed w Pt/Guardian: Yes Pt/Guardian Understands and Agrees with Anesthesia Plan: Yes PreAnesthesia Questionnaire - Past Health History Medical/Surgical History: Denies 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: - Infectious Disease History Infectious Disease History: Reports: Chicken Pox - SUBSTANCE USE Tobacco Use Status *Q: Never Tobacco User Recreational Drug Use History: No - HOME MEDS Home Medications: Home Meds Pnv95/Iron Fum/Folic Acid [ Caplet] 1 tab PO DAILY 06/28/15 [History] Omeprazole Magnesium [Prilosec Otc] 1 tab PO DAILY 08/01/20 [History] - CURRENT (IN HOUSE) MEDS Current Meds: Current Medications Calcium Carbonate/Glycine (Calcium Carbonate 500 Mg Tab.Chew) 1,000 mg PO Q2H PRN PRN Reason: Indigestion Diphenhydramine HCl (Diphenhydramine 50 Mg/Ml Sdv) 25 mg IVPUSH Q6H PRN PRN Reason: pruritis Ephedrine Sulfate (Ephedrine 50 Mg/Ml Sdv) 5 mg IVPUSH ASDIRECTED PRN PRN Reason: Hypotension Fentanyl (Fentanyl 100 Mcg/2 Ml Sdv) 100 mcg EPIDUR Q3H PRN PRN Reason: Pain Last Admin: 08/17/20 03:13 Dose: 100 mcg Documented by: Fentanyl/Bupivacaine HCl (Bupivacaine/Fentanyl/Ns 100 Ml Bag) 100 ml EPIDUR ASDIRECTED PRN PRN Reason: Pain Last Admin: 08/17/20 03:13 Dose: 100 ml Documented by: Oxytocin/Lactated Ringer's (Pitocin In Lr 10 Units/1,000 Ml) 10 unit in 1,000 mls @ 500 mls/hr IV .CONTINUOUS ILIANA Lactated Ringer's (Ringers, Lactated) 1,000 mls @ 100 mls/hr IV ASDIRECTED ILIANA Last Admin: 08/17/20 03:00 Dose: 999 mls/hr Documented by: Nalbuphine HCl (Nalbuphine 10 Mg/1 Ml Vial) 10 mg IVPUSH Q2H PRN PRN Reason: Pain Ondansetron HCl (Ondansetron 4 Mg/2 Ml Sdv) 4 mg IVPUSH Q4HR PRN PRN Reason: Nausea Sodium Chloride (Sodium Chloride 0.9% 10 Ml Syringe) 10 ml FLUSH ASDIRECTED PRN PRN Reason: Keep Vein Open Discontinued Medications Lidocaine HCl (Lidocaine 1% 50 Ml Mdv) 20 ml INJECT ONETIME ONE Stop: 08/17/20 02:40 Ondansetron HCl (Ondansetron 4 Mg/2 Ml Sdv) Confirm Administered Dose 4 mg .ROUTE .STK-MED ONE Stop: 08/17/20 03:07 Last Admin: 08/17/20 03:09 Dose: 4 mg Documented by:
[2020-08-17] MEDS ORDERED: Witch Hazel Medicated Pads 40/Jar TOP PRN ×2 (05:52→07:51)
[2020-08-17] MEDS ORDERED: Ibuprofen 600 MG Tab PO PRN (05:52)
[2020-08-17] MEDS ORDERED: Benzocaine/Menthol 20%-0.5% Spray 56 GM Canister TOP PRN ×2 (05:52→07:51)
[2020-08-17] MEDS ORDERED: Bupivacaine 0.25% 10 ML SDV ONE (07:00)
[2020-08-17] MEDS ORDERED: Acetaminophen 325 MG Tab PO PRN (07:51)
[2020-08-17] MEDS ORDERED: Docusate Sodium 100 MG Cap PO PRN (07:51)
--- NOTE | 2020-08-17 07:53 | PCM.DEL ---
L & D Note - General Info Date of Service: 08/17/20 - Delivery Note Labor: Spontaneous Delivery Outcome: Livebirth Delivery Method: Spontaneous Vaginal Delivery-Single Delivery Mode: Spontaneous Presentation: Right Occiput Anterior (BJ) Nuchal Cord: None Anesthesia Type: Epidural Amniotic Fluid Description: Clear Episiotomy Type: None Laceration: None Placenta: Intact, Spontaneous Cord: 3 Vessels Estimated Blood Loss: 100 Resuscitation Needed: Yes [place]: Bulb Syringe, Stimulated, Warmed, [place] Used Delivery Comments (Free Text/Narrative):: Patient found to be complete and began pushing. With maternal pushing effort head delivered from an BJ presentation. No nuchal cord present. With gentle downward traction the shoulders and body delivered. Infant placed on maternal abdomen. Cord clamped and cut. Cord blood obtained. Placenta allowed time to separate and expelled intact. Inspection of perineum showed no laceration - General Info Date of Service: 08/17/20 - Patient Data Vitals - Most Recent: Last Vital Signs Temp 36.4 C 08/17/20 02:39 Pulse 68 08/17/20 02:39 Resp 18 08/17/20 02:39 BP 131/70 08/17/20 02:39 Pulse Ox 100 08/17/20 02:39 Weight - Most Recent: 98.747 kg I&O - Last 24 Hours: Intake & Output 08/16/20 08/17/20 08/17/20 22:59 06:59 14:59 Intake Total 2250 Output Total 112 Balance 2138 - Problem List & Annotations (1) 40 weeks gestation of SNOMED Code(s): 36492743 Code(s): Z3A.40 - 40 WEEKS GESTATION OF Status: Acute Current Visit: Yes (2) Vaginal delivery SNOMED Code(s): 469615338 Code(s): O80 - ENCOUNTER FOR FULL-TERM UNCOMPLICATED DELIVERY Status: Acute Current Visit: No - Problem List Review Problem List Initiated/Reviewed/Updated: Yes - My Orders Last 24 Hours: My Active Orders 08/17/20 02:39 Resuscitation Status Routine 08/17/20 02:57 HEP C VIRUS AB [REF] Stat RAPID PLASMA REAGIN,RPR [CHEM] Routine TYPE AND SCREEN [BBK] Stat 08/17/20 Breakfast Regular Diet [DIET] 08/17/20 07:51 Activity as Tolerated [RC] PER UNIT ROUTINE Vital Signs [RC] ASDIRECTED Acetaminophen [TylenoL] 650 mg PO Q4H PRN Benzocaine/Menthol [Dermoplast Pain Relief [place]] See Dose Instructions TOP ASDIRECTED PRN Docusate Sodium [Colace] 100 mg PO BID PRN Ibuprofen [Motrin] 600 mg PO Q4H PRN witch [place] [Tucks] 1 pad TOP ASDIRECTED PRN Assess Lochia [WOMSER] Per Unit Routine Assess Uterine Involution [WOMSER] Per Unit Routine Breast Pump [WOMSER] Per Unit Routine Ice Therapy [OM.PC] Per Unit Routine Perineal Care [OM.PC] Per Unit Routine Peripheral IV Discontinue [OM.PC] Routine Sitz Bath [OM.PC] Per Unit Routine 08/17/20 08:00 Heat Therapy [OM.PC] PRN 08/18/20 08:00 Heat Therapy [OM.PC] PRN - Assessment Assessment:: PPD#0 - Plan Plan:: * Routine cares * Breast feeding * Discharge home in 1-2 days
[2020-08-17] MEDS: Ibuprofen 600 MG Tab PO PRN ×2 (11:08→17:34)
--- NOTE | 2020-08-18 03:23 | PCM.DCSUM1 ---
Discharge Summary - Discharge Data Discharge Date: 08/18/20 Discharge Disposition: Home, Self-Care 01 Condition: Good - Referral to Home Health Primary Care Physician: Nahed Cao MD - Discharge Diagnosis/Problem(s) (1) 40 weeks gestation of SNOMED Code(s): 16170976 ICD Code: Z3A.40 - 40 WEEKS GESTATION OF Status: Acute (2) Vaginal delivery SNOMED Code(s): 400816153 ICD Code: O80 - ENCOUNTER FOR FULL-TERM UNCOMPLICATED DELIVERY Status: Acute - Patient Summary/Data Complications: None Consults: None Recommended Follow-up Testing/Procedures: Follow up in 3 weeks for check Hospital Course: 29 y/o at 40 4/7 wks who presented in labor. Progressed well to complete dilation and underwent an uncomplicated . See delivery note. did well and was discharged home on PPD#1 - Patient Instructions Diet: Regular Diet as Tolerated Activity: As Tolerated Activity, Other: Pelvic rest for 6 weeks Driving: May Drive Today Showering/Bathing: May Shower Showering/Bathing, Other: May bathe Notify Provider of: Fever, Increased Pain, Swelling and Redness, Drainage, Nausea and/or Vomiting - Discharge Plan *PRESCRIPTION DRUG MONITORING PROGRAM REVIEWED*: No *COPY OF PRESCRIPTION DRUG MONITORING REPORT IN PATIENT [place]: No Home Medications: Home Meds Pnv95/Iron Fum/Folic Acid [ Caplet] 1 tab PO DAILY 06/28/15 [History] Docusate Sodium [Colace] 100 mg PO BID PRN cap 08/18/20 [Rx] Ibuprofen [Motrin] 600 mg PO Q4H PRN tablet 08/18/20 [Rx] Referrals: Nahed Cao MD [Primary Care Provider] - (3 weeks for check ) - Discharge Summary/Plan Comment DC Time >30 min.: No - Patient Data Vitals - Most Recent: Last Vital Signs Temp 36.7 C 08/17/20 20:51 Pulse 68 08/17/20 20:51 Resp 14 08/17/20 20:51 BP 128/67 08/17/20 20:51 Pulse Ox 97 08/17/20 20:51 Weight - Most Recent: 98.747 kg I&O - Last 24 hours: Intake & Output 08/17/20 08/17/20 08/18/20 14:59 22:59 06:59 Intake Total 180 Balance 180 Lab Results - Last 24 hrs: Laboratory Results - last 24 hr 08/17/20 08/17/20 08/17/20 Range/Units 02:44 02:57 02:57 RPR Non-reactive (NONREACTIVE) SARS-CoV-2 RNA (OTILIO) Negative (NEGATIVE) Blood Type O POSITIVE Gel Antibody Screen Negative Med Orders - Current: Current Medications Acetaminophen (Acetaminophen 325 Mg Tab) 650 mg PO Q4H PRN PRN Reason: mild pain or fever Benzocaine/Menthol (Benzocaine/Menthol 20%-0.5% Evans 56 Gm Canister) 0 gm TOP ASDIRECTED PRN PRN Reason: Perineal Comfort Measure Docusate Sodium (Docusate Sodium 100 Mg Cap) 100 mg PO BID PRN PRN Reason: Constipation Last Admin: 08/17/20 11:07 Dose: 100 mg Documented by: Ibuprofen (Ibuprofen 600 Mg Tab) 600 mg PO Q4H PRN PRN Reason: Mild pain or fever Last Admin: 08/17/20 17:34 Dose: 600 mg Documented by: Elan Padilla (Witlinda Valerie Medicated Pads 40/Jar) 1 pad TOP ASDIRECTED PRN PRN Reason: Perineal Comfort Measure Discontinued Medications Benzocaine/Menthol (Benzocaine/Menthol 20%-0.5% Evans 56 Gm Canister) 56 gm TOP ASDIRECTED PRN PRN Reason: perineal discomfort Last Admin: 08/17/20 06:27 Dose: 1 can Documented by: Bupivacaine HCl (Bupivacaine 0.25% 10 Ml Sdv) 10 ml .ROUTE .STK-MED ONE Stop: 08/17/20 07:01 Calcium Carbonate/Glycine (Calcium Carbonate 500 Mg Tab.Chew) 1,000 mg PO Q2H PRN PRN Reason: Indigestion Diphenhydramine HCl (Diphenhydramine 50 Mg/Ml Sdv) 25 mg IVPUSH Q6H PRN PRN Reason: pruritis Ephedrine Sulfate (Ephedrine 50 Mg/Ml Sdv) 5 mg IVPUSH ASDIRECTED PRN PRN Reason: Hypotension Fentanyl (Fentanyl 100 Mcg/2 Ml Sdv) 100 mcg EPIDUR Q3H PRN PRN Reason: Pain Last Admin: 08/17/20 03:13 Dose: 100 mcg Documented by: Fentanyl/Bupivacaine HCl (Bupivacaine/Fentanyl/Ns 100 Ml Bag) 100 ml EPIDUR ASDIRECTED PRN PRN Reason: Pain Last Admin: 08/17/20 03:13 Dose: 100 ml Documented by: Oxytocin/Lactated Ringer's (Pitocin In Lr 10 Units/1,000 Ml) 10 unit in 1,000 mls @ 500 mls/hr IV .CONTINUOUS ILIANA Last Admin: 08/17/20 04:52 Dose: 500 mls/hr Documented by: Lactated Ringer's (Ringers, Lactated) 1,000 mls @ 100 mls/hr IV ASDIRECTED ILIANA Last Admin: 08/17/20 03:56 Dose: 999 mls/hr Documented by: Ibuprofen (Ibuprofen 600 Mg Tab) 600 mg PO Q4HR PRN PRN Reason: Pain Last Admin: 08/17/20 06:26 Dose: 600 mg Documented by: Lidocaine HCl (Lidocaine 1% 50 Ml Mdv) 20 ml INJECT ONETIME ONE Stop: 08/17/20 02:40 Last Admin: 08/17/20 07:47 Dose: Not Given Documented by: Nalbuphine HCl (Nalbuphine 10 Mg/1 Ml Vial) 10 mg IVPUSH Q2H PRN PRN Reason: Pain Ondansetron HCl (Ondansetron 4 Mg/2 Ml Sdv) Confirm Administered Dose 4 mg .ROUTE .STK-MED ONE Stop: 08/17/20 03:07 Last Admin: 08/17/20 03:09 Dose: 4 mg Documented by: Ondansetron HCl (Ondansetron 4 Mg/2 Ml Sdv) 4 mg IVPUSH Q4HR PRN PRN Reason: Nausea Sodium Chloride (Sodium Chloride 0.9% 10 Ml Syringe) 10 ml FLUSH ASDIRECTED PRN PRN Reason: Keep Vein Open Witch Valerie (Witch Valerie Medicated Pads 40/Jar) 1 pad TOP ASDIRECTED PRN PRN Reason: perineal discomfort Last Admin: 08/17/20 06:27 Dose: 1 tub Documented by:
--- NOTE | 2020-08-18 03:23 | PCM.PNPP ---
- General Info Date of Service: 08/18/20 Functional Status: Reports: Pain Controlled, Tolerating Diet, Ambulating, Urinating - Review of Systems General: Reports: No Symptoms Pulmonary: Reports: No Symptoms Cardiovascular: Reports: No Symptoms Gastrointestinal: Reports: No Symptoms Genitourinary: Reports: No Symptoms - Patient Data Vital Signs - Most Recent: Last Vital Signs Temp 36.7 C 08/17/20 20:51 Pulse 68 08/17/20 20:51 Resp 14 08/17/20 20:51 BP 128/67 08/17/20 20:51 Pulse Ox 97 08/17/20 20:51 Weight - Most Recent: 98.747 kg I&O - Last 24 Hours: Intake & Output 08/17/20 08/17/20 08/18/20 14:59 22:59 06:59 Intake Total 180 Balance 180 Lab Results - Last 24 Hours: Laboratory Results - last 24 hr 08/17/20 08/17/20 08/17/20 Range/Units 02:44 02:57 02:57 RPR Non-reactive (NONREACTIVE) SARS-CoV-2 RNA (OTILIO) Negative (NEGATIVE) Blood Type O POSITIVE Gel Antibody Screen Negative Med Orders - Current: Current Medications Acetaminophen (Acetaminophen 325 Mg Tab) 650 mg PO Q4H PRN PRN Reason: mild pain or fever Benzocaine/Menthol (Benzocaine/Menthol 20%-0.5% [place] 56 Gm Canister) 0 gm TOP ASDIRECTED PRN PRN Reason: Perineal Comfort Measure Docusate Sodium (Docusate Sodium 100 Mg Cap) 100 mg PO BID PRN PRN Reason: Constipation Last Admin: 08/17/20 11:07 Dose: 100 mg Documented by: Ibuprofen (Ibuprofen 600 Mg Tab) 600 mg PO Q4H PRN PRN Reason: Mild pain or fever Last Admin: 08/17/20 17:34 Dose: 600 mg Documented by: Elan Padilla (Witlinda Blandonel Medicated Pads 40/Jar) 1 pad TOP ASDIRECTED PRN PRN Reason: Perineal Comfort Measure Discontinued Medications Benzocaine/Menthol (Benzocaine/Menthol 20%-0.5% [place] 56 Gm Canister) 56 gm TOP ASDIRECTED PRN PRN Reason: perineal discomfort Last Admin: 08/17/20 06:27 Dose: 1 can Documented by: Bupivacaine HCl (Bupivacaine 0.25% 10 Ml Sdv) 10 ml .ROUTE .STK-MED ONE Stop: 08/17/20 07:01 Calcium Carbonate/Glycine (Calcium Carbonate 500 Mg Tab.Chew) 1,000 mg PO Q2H P RN PRN Reason: Indigestion Diphenhydramine HCl (Diphenhydramine 50 Mg/Ml Sdv) 25 mg IVPUSH Q6H PRN PRN Reason: pruritis Ephedrine Sulfate (Ephedrine 50 Mg/Ml Sdv) 5 mg IVPUSH ASDIRECTED PRN PRN Reason: Hypotension Fentanyl (Fentanyl 100 Mcg/2 Ml Sdv) 100 mcg EPIDUR Q3H PRN PRN Reason: Pain Last Admin: 08/17/20 03:13 Dose: 100 mcg Documented by: Fentanyl/Bupivacaine HCl (Bupivacaine/Fentanyl/Ns 100 Ml Bag) 100 ml EPIDUR ASDIRECTED PRN PRN Reason: Pain Last Admin: 08/17/20 03:13 Dose: 100 ml Documented by: Oxytocin/Lactated Ringer's (Pitocin In Lr 10 Units/1,000 Ml) 10 unit in 1,000 mls @ 500 mls/hr IV .CONTINUOUS ILIANA Last Admin: 08/17/20 04:52 Dose: 500 mls/hr Documented by: Lactated Ringer's (Ringers, Lactated) 1,000 mls @ 100 mls/hr IV ASDIRECTED ILIANA Last Admin: 08/17/20 03:56 Dose: 999 mls/hr Documented by: Ibuprofen (Ibuprofen 600 Mg Tab) 600 mg PO Q4HR PRN PRN Reason: Pain Last Admin: 08/17/20 06:26 Dose: 600 mg Documented by: Lidocaine HCl (Lidocaine 1% 50 Ml Mdv) 20 ml INJECT ONETIME ONE Stop: 08/17/20 02:40 Last Admin: 08/17/20 07:47 Dose: Not Given Documented by: Nalbuphine HCl (Nalbuphine 10 Mg/1 Ml Vial) 10 mg IVPUSH Q2H PRN PRN Reason: Pain Ondansetron HCl (Ondansetron 4 Mg/2 Ml Sdv) Confirm Administered Dose 4 mg .ROUTE .STK-MED ONE Stop: 08/17/20 03:07 Last Admin: 08/17/20 03:09 Dose: 4 mg Documented by: Ondansetron HCl (Ondansetron 4 Mg/2 Ml Sdv) 4 mg IVPUSH Q4HR PRN PRN Reason: Nausea Sodium Chloride (Sodium Chloride 0.9% 10 Ml Syringe) 10 ml FLUSH ASDIRECTED PRN PRN Reason: Keep Vein Open Witch Valerie (Witch Valerie Medicated Pads 40/Jar) 1 pad TOP ASDIRECTED PRN PRN Reason: perineal discomfort Last Admin: 08/17/20 06:27 Dose: 1 tub Documented by: - Infant Interaction Infant Disposition, : in Room with Family Infant Interaction: Holding Infant Feeding: Attempted ; Nursed Fair/Poor Support Person: - Recovery Exam Fundal Tone: Firm Fundal Level: 1 Fingerbreadths Below Umbilicus Fundal Placement: Midline Lochia Amount: Small Lochia Color: Rubra/Red Perineum Description: Intact, Minimal Bruising/Swelling Bladder Status: Voiding Urinary Elimination: Voided - Exam General: Alert, Oriented, Cooperative GI/Abdominal Exam: Soft, Non-Tender - Problem List & Annotations (1) 40 weeks gestation of SNOMED Code(s): 96059715 Code(s): Z3A.40 - 40 WEEKS GESTATION OF Status: Acute (2) Vaginal delivery SNOMED Code(s): 876113577 Code(s): O80 - ENCOUNTER FOR FULL-TERM UNCOMPLICATED DELIVERY Status: Acute - Problem List Review Problem List Initiated/Reviewed/Updated: Yes - My Orders Last 24 Hours: My Active Orders 08/17/20 02:39 Resuscitation Status Routine 08/17/20 02:57 HEP C VIRUS AB [REF] Stat 08/17/20 Breakfast Regular Diet [DIET] 08/17/20 07:51 Acetaminophen [TylenoL] 650 mg PO Q4H PRN Benzocaine/Menthol [Dermoplast Pain Relief [place]] See Dose Instructions TOP ASDIRECTED PRN Docusate Sodium [Colace] 100 mg PO BID PRN Ibuprofen [Motrin] 600 mg PO Q4H PRN witch Valerie [Tucks] 1 pad TOP ASDIRECTED PRN 08/17/20 07:51 Activity as Tolerated [RC] PER UNIT ROUTINE Vital Signs [RC] 03,09,15,21 Assess Lochia [WOMSER] Per Unit Routine Assess Uterine Involution [WOMSER] Per Unit Routine Breast Pump [WOMSER] Per Unit Routine Ice Therapy [OM.PC] Per Unit Routine Perineal Care [OM.PC] Per Unit Routine Peripheral IV Discontinue [OM.PC] Routine Sitz Bath [OM.PC] Per Unit Routine 08/17/20 08:00 Heat Therapy [OM.PC] PRN 08/18/20 03:22 Ready for Discharge [RC] PER UNIT ROUTINE 08/18/20 08:00 Heat Therapy [OM.PC] PRN - Assessment Assessment:: PPD#1 - Plan Plan:: * Routine cares * Breast feeding * Discharge home today
[2020-08-18 04:14] VITALS: BP 128/86; PULSE 67
--- NOTE | 2020-08-18 07:40 | PCM48HPAN ---
Post Anesthesia Note - EVALUATION WITHIN 48HRS OF ANESTHETIC Vital Signs in Normal Range: Yes Patient Participated in Evaluation: Yes Respiratory Function Stable: Yes Airway Patent: Yes Cardiovascular Function Stable: Yes Hydration Status Stable: Yes Pain Control Satisfactory: Yes Nausea and Vomiting Control Satisfactory: Yes Mental Status Recovered: Yes Vital Signs: Last Vital Signs Temp 97.9 F 08/18/20 04:01 Pulse 67 08/18/20 04:01 Resp 18 08/18/20 04:01 BP 128/86 08/18/20 04:01 Pulse Ox 97 08/18/20 04:01
== END 2020-08-18 11:04 | disposition home or self-care (01) | DRG 560 ==
LOC: JD.OBCHECK 02:21 → JD.OB 02:24 → JD.OBCHECK 02:40 → JD.OB 02:40 → OBSVTOIN 04:51 → JD.OB 04:52
PROVIDERS: ADMIT Obstetrics & Gynecology; ATTEND Obstetrics & Gynecology
PROC: 10E0XZZ Delivery of Products of Conception, External Approach (ICD-10-PCS; principal; 2020-08-17)
PROC: 3E0R3BZ Introduction of Anesthetic Agent into Spinal Canal, Percutaneous Approach (ICD-10-PCS; 2020-08-17)
DX: O48.0 Post-term pregnancy (principal); Z37.0 Single live birth; Z3A.40 40 weeks gestation of pregnancy; Z88.0 Allergy status to penicillin; Z20.822 Contact with and (suspected) exposure to COVID-19
CPT/HCPCS: 36415; 59025; 59409; 85025; 86592; 86803; 86850; 86900; 86901; A9270-GY; J2405; J2590; J3010; J3490; J7120; U0002

== ENCOUNTER 2023-10-31 06:23 | Inpatient (IN) | payer BC, OTHER ==
[2023-10-31] MEDS ORDERED: Calcium Carbonate 500 MG Tab.Chew PO PRN (06:57)
[2023-10-31] MEDS ORDERED: Lidocaine 1% 50 ML MDV INJECT PRN (06:57)
[2023-10-31] MEDS ORDERED: Lactated Ringers 1,000 ML IV SCH (07:00)
[2023-10-31 07:23] LABS: BASOPHILS PERCENT AUTO 0.3 % (0.0-1.0); EOSINOPHILS ABSOLUTE AUTO 0.1 K/mm3 (0.0-0.4); EOSINOPHILS PERCENT AUTO 0.8 % (0.0-6.0); HEMATOCRIT 38.2 % (37.0-47.0); HEMOGLOBIN 12.8 gm/dl (12.0-16.0); IMMATURE GRAN ABSOLUTE AUTO 0.06 K/mm3 (0.00-0.05); IMMATURE GRAN PERCENT AUTO 0.4 % (0.0-0.4); LYMPHOCYTES ABSOLUTE AUTO 1.8 K/mm3 (1.0-4.8); LYMPHOCYTES PERCENT AUTO 13.2 % (24.0-44.0); MEAN CORPUSCULAR HGB CONC 33.5 g/dl (32.0-36.0); MEAN CORPUSCULAR VOLUME 86.4 fl (83.0-99.0); MEAN PLATELET VOLUME 10.3 fl (9.4-12.3); MONOCYTES ABSOLUTE AUTO 0.6 K/mm3 (0.0-0.8); MONOCYTES PERCENT AUTO 4.3 % (0.0-8.0); NEUTROPHILS ABSOLUTE AUTO 11.1 K/mm3 (1.8-7.7); PLATELET COUNT,PLT 200 K/mm3 (150-400); RED BLOOD CELL COUNT 4.42 M/mm3 (4.10-5.30); WHITE BLOOD CELL COUNT,WBC 13.65 K/mm3 (3.9-11.3)
[2023-10-31] MEDS: Ondansetron 4 MG/2 ML SDV IVPUSH PRN (08:20)
[2023-10-31] MEDS: Oxytocin/0.9 % Sodium Chloride 30 UNIT/500 ML BAG IV SCH (08:51)
[2023-10-31] MEDS ORDERED: Docusate Sodium 100 MG Cap PO PRN (11:49)
[2023-10-31] MEDS ORDERED: Acetaminophen 325 MG Tab PO PRN (11:49)
[2023-10-31] MEDS: Witch Hazel Medicated Pads 40/Jar TOP PRN (12:07)
[2023-10-31] MEDS: Ibuprofen 600 MG Tab PO SCH (12:07)
[2023-10-31] MEDS: Benzocaine/Menthol 20%-0.5% Spray 78 GM Cannister TOP PRN (12:07)
[2023-11-01 11:36] VITALS: BP 121/53; PULSE 76
== END 2023-11-01 12:44 | disposition home or self-care (01) | DRG 560 ==
LOC: JD.OBCHECK 06:23 → JD.OB 06:35 → JD.OBCHECK 07:08 → OBSVTOIN 08:51 → JD.OB 08:52
PROVIDERS: ADMIT Obstetrics & Gynecology; ATTEND Obstetrics & Gynecology
PROC: 10E0XZZ Delivery of Products of Conception, External Approach (ICD-10-PCS; principal; 2023-10-31)
DX: O69.81X0 Labor and delivery complicated by cord around neck, without compression, not applicable or unspecified (principal); Z37.0 Single live birth; Z3A.39 39 weeks gestation of pregnancy; Z88.0 Allergy status to penicillin
CPT/HCPCS: 36415; 59025; 59409; 85025; 86592; 86850; 86900; 86901; A9270-GY; J2405; J7999